=== PATIENT | female | born 1945 | race Caucasian/White ===

== ENCOUNTER 2019-08-28 08:45 | Outpatient (CLI) | payer MEDICARE ==
--- NOTE | 2019-08-28 09:27 | RAD ---
Frontal and lateral imaging of the thoracic spine: 08/28/2019 COMPARISON: None HISTORY: Chronic back pain FINDINGS: There is a multilead transvenous AICD. There is mild increased linear interstitial density. Multilevel disc space narrowing with degenerative endplate change and anterior osteophyte formation i s noted within the thoracic spine, most prominent in the mid thoracic spine from the T3-4 level through the T9-10 level. No anterolisthesis or retrolisthesis. No acute fracture is evident. IMPRESSION: Multilevel thoracic spine degenerative change. No acute fracture is appreciated.
--- NOTE | 2019-08-28 09:55 | RAD ---
LUMBAR SPINE 3 VIEWS: Date: 08/28/19 HISTORY: Low back pain. FINDINGS: Multilevel degenerative changes are present. No fracture, subluxation, or bony destruction is identif ied. IMPRESSION: Lumbar spondylosis. POS: OFF
== END 2019-08-28 08:46 | disposition home or self-care (01) ==
LOC: NAV RAD 08:45
PROVIDERS: ATTEND Family Medicine
DX: M54.9 Dorsalgia, unspecified (principal); G89.29 Other chronic pain; M47.816 Spondylosis without myelopathy or radiculopathy, lumbar region; M47.814 Spondylosis without myelopathy or radiculopathy, thoracic region
CPT/HCPCS: 72072; 72100

== ENCOUNTER 2020-11-04 08:11 | Emergency (ER) | payer MEDICARE ==
[2020-11-04 08:53] LABS: #Basophils 0.1 thou/uL (0.0-0.2); #Eosinphils 0.2 thou/uL (0.0-0.7); #Lymphocytes 1.3 thou/uL (1.20-3.40); #Monocytes 0.7 thou/uL (0.11-0.59); #Neutrophils 9.5 thou/uL (1.40-6.50); %Basophils 0.8 % (0.0-1.0); %Eosinophils 1.9 % (0.0-10.0); %Lymphocytes 11.2 % (21.0-51.0); %Monocytes 5.7 % (0.0-10.0); %Neutrophils 80.4 % (42.0-75.0); Hemoglobin 12.6 g/dL (12.0-16.0); Mean Corpuscular HGB CONC 33.4 g/dL (32.0-36.0); Mean Corpuscular Hemoglobin 33.1 pg (27.0-31.0); Mean Corpuscular Volume 98.9 fL (78.0-98.0); Mean Platelet Volume 8.6 fL (7.4-10.4); Platelet Count 242 thou/uL (130-400); RBC Distribution Width 11.2 % (11.5-14.5); White Blood Cell (WBC) Count 11.8 thou/uL (4.8-10.8)
[2020-11-04 09:08] LABS: ALT (SGPT) 16 U/L (8-55); AST (SGOT) 23 U/L (5-34); Albumin 3.7 g/dL (3.4-4.8); Alkaline Phosphatase 127 U/L (40-110); Anion Gap 17 mmol/L (10-20); BUN (Urea Nitrogen) 21 mg/dL (9.8-20.1); Bilirubin, Total 0.6 mg/dL (0.2-1.2); Calc. Creatinine Clearance 0 mL/min (70-130); Calcium 8.7 mg/dL (7.8-10.44); Carbon Dioxide 22 mmol/L (23-31); Chloride 99 mmol/L (98-107); Globulin 3.1 g/dL (2.4-3.5); Glucose 150 mg/dL (83-110); Potassium 4.6 mmol/L (3.5-5.1); Protein, Total 6.8 g/dL (6.0-8.3); Sodium 133 mmol/L (136-145)
--- NOTE | 2020-11-04 09:49 | CT ---
EXAM: Brain CTWithout contrast: HISTORY: Headache COMPARISON: None FINDINGS: Bilateral atrophy and chronic white matter ischemic change. No focal mass or midline shift. No intra or extra-axial hemorrhage. Sinuses and mastoids are clear of acute process. IMPRESSION: No mass or bleed or other significant acute intracranial process.
[2020-11-04 10:02] LABS: Bilirubin Negative (Negative); Blood, Urine Negative (Negative); Clarity Clear (Clear); Glucose, Urine (Dipstick) Negative (Negative); Ketone, Urine Negative (Negative); Leukocyte Negative (Negative); Nitrite Negative (Negative); Protein, Urine (Dipstick) Negative (Neg-Trace); Specific Gravity, Urine 1.015 (1.005-1.030); Urobilinogen 0.2 mg/dL (Less than 2)
== END 2020-11-04 10:17 | disposition home or self-care (01) ==
LOC: NAV ERS 08:11
DX: I10 Essential (primary) hypertension (principal); E10.9 Type 1 diabetes mellitus without complications; E03.9 Hypothyroidism, unspecified; E78.5 Hyperlipidemia, unspecified; E78.00 Pure hypercholesterolemia, unspecified; Z79.4 Long term (current) use of insulin; Z79.82 Long term (current) use of aspirin; Z79.899 Other long term (current) drug therapy
CPT/HCPCS: 70450; 80053; 81003; 84484; 85025; 93005

== ENCOUNTER 2021-12-18 08:53 | Outpatient (CLI) | payer MEDICARE | END 2021-12-18 08:54 | disposition home or self-care (01) | LOC: NAV RAD 08:53 | PROVIDERS: ATTEND Family Medicine | DX: R06.00 Dyspnea, unspecified (principal) | CPT/HCPCS: 71046 ==

== ENCOUNTER 2022-03-11 10:56 | Emergency (ER) | payer MEDICARE ==
[2022-03-11] MEDS ORDERED: Meclizine HCl 25 MG TAB ONE (12:24)
== END 2022-03-11 12:32 | disposition home or self-care (01) ==
LOC: NAV ERS 10:56
DX: H81.10 Benign paroxysmal vertigo, unspecified ear (principal); R29.700 NIHSS score 0; I10 Essential (primary) hypertension; E10.9 Type 1 diabetes mellitus without complications; E03.9 Hypothyroidism, unspecified; E78.5 Hyperlipidemia, unspecified; E78.00 Pure hypercholesterolemia, unspecified; C85.90 Non-Hodgkin lymphoma, unspecified, unspecified site
CPT/HCPCS: 99284

== ENCOUNTER 2022-12-25 09:25 | Outpatient (CLI) | payer MEDICARE ==
[2022-12-25 10:04] LABS: Anion Gap 17 mmol/L (10-20); BUN (Urea Nitrogen) 34 mg/dL (9.8-20.1); Calc. Creatinine Clearance 0 mL/min (70-130); Calcium 9.8 mg/dL (7.8-10.44); Carbon Dioxide 21 mmol/L (23-31); Chloride 93 mmol/L (98-107); Estimated GFR 52; Glucose 140 mg/dL (83-110); Potassium 4.9 mmol/L (3.5-5.1); Sodium 126 mmol/L (136-145)
== END 2022-12-25 09:26 | disposition home or self-care (01) ==
LOC: NAV LAB 09:25
PROVIDERS: ATTEND Family Medicine
DX: E87.5 Hyperkalemia (principal)
CPT/HCPCS: 36415; 80048